=== PATIENT | female | born 1975 | race Caucasian/White ===

== ENCOUNTER → 2016-08-12 | Outpatient (CLI) | payer BC ==
--- NOTE | 2016-08-12 12:38 | DI ---
PELVIC ULTRASOUND, 08/12/2016 8:58 AM Clinical History: Menorrhagia with regular cycles Previous Exam: None at this facility. Technique: Transabdominal and transvaginal scans are performed. The uterus measures 45 x 50 x 80 mm and has a normal appearance. The central uterine stripe measures 6 mm. The ovaries are normal and demonstrate vascular flow. Both adnexae are normal in appearance. Th ere are no fluid collections or masses. Reading: Normal pelvic ultrasound.
== END ==
LOC: US 09:50
PROVIDERS: ATTEND Obstetrics & Gynecology
DX: N92.0 Excessive and frequent menstruation with regular cycle (principal); N94.6 Dysmenorrhea, unspecified
CPT/HCPCS: 76830; 76856